=== PATIENT | female | born 1975 | race Caucasian/White ===

== ENCOUNTER 2016-09-29 22:04 | Emergency (ER) | payer OTHER ==
[~2016-09-29] VITALS: Ht 170.2 cm; Wt 76.9 kg
[2016-09-29 22:05] VITALS: BP 119/84
[2016-09-29] MEDS ORDERED: LEVO125T5 PO (22:34)
[2016-09-29] MEDS ORDERED: FLUT1DIS3 INH (22:34)
[2016-09-29] MEDS ORDERED: ALBU0.63 NEB (22:34)
[2016-09-29] MEDS ORDERED: DILT180C9 PO (22:34)
[2016-09-29] MEDS ORDERED: ALBUTEROL/IPRATROPIUM 2.5MG/0.5MG, 3 ML NPPB ONE (23:00)
== END 2016-09-29 23:30 | disposition home or self-care (01) ==
LOC: ED 23:24
DX: J45.41 Moderate persistent asthma with (acute) exacerbation (principal); J45.22 Mild intermittent asthma with status asthmaticus
CPT/HCPCS: 71020; 93005; 94640; 99284; J7512; J7620